=== PATIENT | male | born 1940 | race Caucasian/White ===

== ENCOUNTER 2017-08-05 12:25 | Inpatient (IN) | payer OTHER ==
[~2017-08-05] VITALS: Ht 175.3 cm; Wt 77.1 kg
--- NOTE | 2017-08-05 12:33 | NUR ---
pt is in room #1b. dr Diaz evaluated the pt.
[2017-08-05] MEDS ORDERED: LABETALOL HCL 100 MG/20 ML VIAL ONE ×2 (12:57→14:32)
[2017-08-05] MEDS ORDERED: LABETALOL HCL 100 MG/20 ML VIAL IV ONE ×2 (13:00)
[2017-08-05 13:03] LABS: BASOPHILS # (AUTO) 0.1 K/uL (0.0-8.0); BASOPHILS % (AUTO) 0.9 % (0.0-2.0); EOSINOPHILS # (AUTO) 0.1 K/uL (0.0-0.7); HEMATOCRIT 28.4 % (36.7-47.1); HEMOGLOBIN 9.6 g/dL (12.5-16.3); LYMPHOCYTES # (AUTO) 1.1 K/uL (20.0-40.0); LYMPHOCYTES % (AUTO) 16.2 % (20.5-51.5); MEAN CORPUSCULAR HEMOGLOBIN 31.8 uug (23.8-33.4); MEAN CORPUSCULAR HGB CONC 34 g/dL (32.5-36.3); MEAN CORPUSCULAR VOLUME 94.1 fL (73.0-96.2); MONOCYTES # (AUTO) 0.8 K/uL (2.0-10.0); MONOCYTES % (AUTO) 11.5 % (0.0-11.0); NEUTROPHILS # (AUTO) 4.9 K/uL (1.8-8.9); NEUTROPHILS % (AUTO) 70.4 % (38.5-71.5); PLATELET COUNT (AUTO) 178 K/uL (152-348); RED BLOOD CELL COUNT(AUTO) 3.01 MIL/uL (4.06-5.63)
[2017-08-05 13:11] LABS: CARBON DIOXIDE 29 mmol/L (21-32); CHLORIDE 106 mmol/L (98-107); CREATININE 1.9 mg/dL (0.6-1.3); GLUCOSE 127 mg/dL (74-106); UREA NITROGEN, BLOOD 33 mg/dL (7-18)
[2017-08-05 13:23] LABS: ALANINE AMINOTRANSFERASE 17 U/L (16-63); ALKALINE PHOSPHATASE 61 U/L (50-136); ASPARTATE AMINOTRANSFERASE 11 U/L (15-37); BILIRUBIN,DIRECT 0.1 mg/dL (0.0-0.2); BILIRUBIN,TOTAL 0.3 mg/dL (0.2-1.0); TOTAL PROTEIN, SERUM 7.1 g/dL (6.4-8.2)
[2017-08-05] MEDS ORDERED: hydrALAZINE HCL 20 MG/1 ML VIAL IV ONE ×2 (13:45→14:30)
[2017-08-05] MEDS ORDERED: hydrALAZINE HCL 20 MG/1 ML VIAL ONE ×2 (13:50→14:33)
[2017-08-05] MEDS ORDERED: ACET-2154 PO (14:07)
[2017-08-05] MEDS ORDERED: DIVA125T2 PO (14:07)
[2017-08-05] MEDS ORDERED: ASPI81TA31 PO (14:07)
[2017-08-05] MEDS ORDERED: LATA2.5D7 EACHEYE (14:07)
[2017-08-05] MEDS ORDERED: MULT1TAB73 PO (14:07)
[2017-08-05] MEDS ORDERED: FERR325T28 PO (14:07)
[2017-08-05] MEDS ORDERED: NIFE60TA69 PO (14:07)
[2017-08-05] MEDS ORDERED: MELA5TAB PO (14:07)
[2017-08-05] MEDS ORDERED: SENN-71 PO (14:07)
[2017-08-05] MEDS ORDERED: ATOR10TA PO (14:07)
[2017-08-05] MEDS ORDERED: FAMO40TA71 PO (14:07)
[2017-08-05] MEDS ORDERED: ISOS30TA6 PO (14:07)
[2017-08-05] MEDS ORDERED: METF500T6 PO (14:07)
[2017-08-05] MEDS ORDERED: HC A30CR2 RC (14:07)
[2017-08-05] MEDS ORDERED: SITA100T PO (14:07)
[2017-08-05] MEDS ORDERED: CALC300T PO (14:07)
[2017-08-05] MEDS ORDERED: FINA5TAB3 PO (14:07)
[2017-08-05] MEDS ORDERED: DIVA250T4 PO (14:07)
[2017-08-05] MEDS ORDERED: CHOL100045 PO (14:07)
[2017-08-05] MEDS ORDERED: NADO20TA12 PO (14:07)
[2017-08-05] MEDS ORDERED: ASPIRIN 81 MG TAB.CHEW PO ONE (14:15)
[2017-08-05] MEDS ORDERED: ASPIRIN 81 MG TAB.CHEW ONE (14:31)
[2017-08-05] MEDS ORDERED: DIVALPROEX 125 MG TABLET.DR PO PRN (14:45)
[2017-08-05] MEDS ORDERED: DEXTROSE 50% 50 ML DISP.SYRIN IV PRN (14:45)
[2017-08-05] MEDS ORDERED: MORPHINE SULFATE 2 MG/1 ML DISP.SYRIN IV PRN (14:45)
[2017-08-05] MEDS ORDERED: ONDANSETRON 4 MG/2 ML VIAL IV PRN (14:45)
[2017-08-05] MEDS: ASPIRIN EC 81 MG TABLET.DR PO SCH (14:45)
[2017-08-05] MEDS ORDERED: SENNOSIDES/DOCUSATE SODIUM TABLET PO PRN (14:45)
[2017-08-05] MEDS ORDERED: NITROGLYCERIN 0.4 MG/TAB BOTTLE SL PRN (14:45)
[2017-08-05] MEDS ORDERED: hydrALAZINE HCL 25 MG TABLET PO PRN (14:45)
--- NOTE | 2017-08-05 14:49 | NUR ---
report was given to rn mode. pt was trnsfered to mode room #206.
[2017-08-05] MEDS ORDERED: hydrALAZINE HCL 20 MG/1 ML VIAL IV PRN (15:15)
--- NOTE | 2017-08-05 15:15 | NUR ---
ADMITTED FROM [facility] A 77 YO MALE WITH ADM DX OF CP, HYPERTENSION OUT OF CONTROL, ANEMIA, ALERT AND VERBALLY RESPONSIVE, VERY CONFUSED AND UNCOOPERATIVE. REORIENTATION TO UNIT INITIATED. PLACED COMFORTABLY AND SAFELY IN BED REFUSED TO USE HOSPITAL GOWN AND HEART MONITOR. EXPLAINED THE PROTOCOL AND IMPORTANCE F BEING ON HEART MONITOR AND BECAME COMPLIANCE AFTER TALKING TO SON. ADMISSION ASSESSMENT INITIATED. SR ON MONITOR. OBSERVED
[2017-08-05 15:46] VITALS: BP 175/74
[2017-08-05 17:01] LABS: *BILIRUBIN,URIN NEGATIVE (NEGATIVE); *BLOOD, URINE NEGATIVE (NEGATIVE); *CLARITY,URINE CLEAR (CLEAR); *COLOR,URINE YELLOW (YELLOW); *KETONES,URINE NEGATIVE (NEGATIVE); *PROTEIN,URINE 2+ (NEGATIVE); *UROBILINOGEN,URINE 0.2 E.U./dl (NORMAL); LEUKOCYTE ESTERASE ,URINE NEGATIVE (NEGATIVE); NITRITE, URINE NEGATIVE (NEGATIVE); UGLUCOSE NEGATIVE (NEGATIVE)
[2017-08-05] MEDS: DIVALPROEX 250 MG TABLET.DR PO SCH (17:04)
[2017-08-05 17:09] LABS: BACTERIA,URINE FEW /HPF (NONE SEEN); RBC,URINE 0-3 /HPF (0-3); SQUAMOUS EPITHELIAL CELL,UR FEW /HPF (NONE SEEN); WBC,URINE 0-3 /HPF (0-3)
[2017-08-05] MEDS: BLOOD SUGAR DIAGNOSTIC 1 EACH STRIP VI SCH ×2 (17:09→20:53)
--- NOTE | 2017-08-05 18:39 | NUR ---
RESTING IN BED WITH NO SS OF DISTRESS. SR ON MONITOR. ATE DINNER FAIRLY WELL. FAMILY CAME IN VERY SUPPORTIVE WITH CARE
[2017-08-05] MEDS: MORPHINE SULFATE 4 MG/1 ML DISP.SYRIN IV PRN (19:37)
[2017-08-05] MEDS: ATORVASTATIN 10 MG TABLET PO SCH (20:49)
[2017-08-05] MEDS: LATANOPROST OPHT DROP 2.5 ML BOTTLE EACHEYE SCH (20:49)
[2017-08-05] MEDS: NIFEdipine XL 60 MG TABSR PO SCH (20:49)
[2017-08-05 20:50] VITALS: BP 125/71
[2017-08-05] MEDS: INSULIN REGULAR, HUMAN 300 UNIT/3 ML VIAL SQ PRN (20:58)
[2017-08-06 01:09] VITALS: BP 142/62
[2017-08-06 04:00] VITALS: BP 149/64
--- NOTE | 2017-08-06 05:30 | NUR ---
PT ALERT,ORIENTED, FORGETFUL, PT EASILY GET AGITATED, SHORT -TEMPER. PT C/O PAIN IN THE NECK WARM COMPRESS AND MORPHINE GIVEN WITH GOOD RELIEF ,SLEPT WELL UNTIL PT AWAKEN FROM NOISE IN THE MORNING. GETS UPSET AND VERBALLY RUDE.REFUSED LABS THIS MORNING AND WANTED TO SLEEP MORE, WILL RESCHEDULE LATER TODAY, TROPONIN IS NEGATIVE,VSS,AFEBRILE, SINUS RHYTHM ON MONITOR, NO ECTOPY. WILL CONTINUE TO MONITOR, STILL NEEDS STOOL SAMPLE.
[2017-08-06] MEDS: PANTOPRAZOLE SODIUM 40 MG TABLET.DR PO SCH (06:37)
[2017-08-06] MEDS: BLOOD SUGAR DIAGNOSTIC 1 EACH STRIP VI SCH ×6 (07:30→20:50)
--- NOTE | 2017-08-06 07:53 | NUR ---
PATIENT IN ROOM WITH DOOR CLOSE, VERY UNCOOPERATIVE AND VERBALLY ABUSIVE AND LOUD, BANGING DOOR WHEN TRIED TO HELP WITH AM AND ROUTINE CARE. REMOVED HEART MONITOR OTHERWISE REMAINS ON SR.
--- NOTE | 2017-08-06 08:01 | NUR ---
RESTING IN BED WITH NO SS OF HYPO OR HYPERGLYCEMIA. KEEP NPO
[2017-08-06] MEDS: CHOLECALCIFEROL 1,000 UNIT TABLET PO SCH (08:09)
[2017-08-06] MEDS: ASPIRIN EC 81 MG TABLET.DR PO SCH (08:11)
[2017-08-06] MEDS: MULTIVITAMINS,THERAPEUTIC TABLET PO SCH (08:11)
[2017-08-06] MEDS: FERROUS SULFATE 325 MG TABEC PO SCH (08:11)
[2017-08-06] MEDS: FINASTERIDE 5 MG TABLET PO SCH (08:11)
[2017-08-06] MEDS: DIVALPROEX 250 MG TABLET.DR PO SCH ×2 (08:12→16:44)
[2017-08-06] MEDS: ISOSORBIDE MONONITRATE 30 MG TAB.SR.24H PO SCH (08:12)
[2017-08-06] MEDS: NIFEdipine XL 60 MG TABSR PO SCH ×2 (08:13→20:43)
[2017-08-06] MEDS: NADOLOL 40 MG TABLET PO SCH (08:16)
[2017-08-06] MEDS: INSULIN REGULAR, HUMAN 300 UNIT/3 ML VIAL SQ PRN ×4 (08:23→20:52)
--- NOTE | 2017-08-06 08:58 | NUR ---
REMAINS VERY CONFUSED, SEEN BY DR GUAJARDO WITH ORDERS. CHANGED STATUS TO TELE. REMAINS SR ON MONITOR, DENIES CP
[2017-08-06] MEDS ORDERED: Medication Not On Formulary EA (Multivitamins (Multivitamin) 1 EACH) PO SCH (09:00)
[2017-08-06] MEDS ORDERED: NADOLOL 20 MG PO SCH (09:00)
[2017-08-06] MEDS ORDERED: Medication Not On Formulary EA (Sitagliptin Phosphate (Januvia) 100 MG) PO SCH (09:00)
[2017-08-06] MEDS ORDERED: SITAGLIPTIN PHOSPHATE 50 MG TABLET PO SCH (09:00)
[2017-08-06 09:10] LABS: ALANINE AMINOTRANSFERASE 17 U/L (16-63); ALKALINE PHOSPHATASE 55 U/L (50-136); ASPARTATE AMINOTRANSFERASE 16 U/L (15-37); BILIRUBIN,TOTAL 0.5 mg/dL (0.2-1.0); CARBON DIOXIDE 29 mmol/L (21-32); CHLORIDE 103 mmol/L (98-107); CHOLESTEROL 154 mg/dL (<200); CREATININE 1.8 mg/dL (0.6-1.3); GLUCOSE 176 mg/dL (74-106); HDL CHOLESTEROL 48 mg/dL (40-60); MAGNESIUM 1.7 mg/dL (1.8-2.4); PHOSPHOROUS 3.9 mg/dL (2.5-4.9); POTASSIUM 4.1 mmol/L (3.5-5.1); TOTAL PROTEIN, SERUM 7.1 g/dL (6.4-8.2); TRIGLYCERIDES 95 MG/DL (30-150); UREA NITROGEN, BLOOD 29 mg/dL (7-18)
[2017-08-06 09:13] LABS: IRON, SERUM 67 ug/dL (50-175)
[2017-08-06 09:19] LABS: BASOPHILS % (AUTO) 0.5 % (0.0-2.0); EOSINOPHILS # (AUTO) 0.1 K/uL (0.0-0.7); EOSINOPHILS % (AUTO) 1.6 % (0.0-7.0); HEMATOCRIT 29.9 % (36.7-47.1); MEAN CORPUSCULAR HEMOGLOBIN 31.4 uug (23.8-33.4); MEAN CORPUSCULAR HGB CONC 34 g/dL (32.5-36.3); MONOCYTES # (AUTO) 0.9 K/uL (2.0-10.0); NEUTROPHILS # (AUTO) 4.9 K/uL (1.8-8.9); NEUTROPHILS % (AUTO) 70.9 % (38.5-71.5); PLATELET COUNT (AUTO) 183 K/uL (152-348); RED BLOOD CELL COUNT(AUTO) 3.19 MIL/uL (4.06-5.63); WHITE BLOOD COUNT (AUTO) 6.9 K/uL (3.6-10.2)
--- NOTE | 2017-08-06 09:30 | NUR ---
SEEN BY DR WILLS AWARE OF HYPERNATREMIA, SAID CONTINUE CURRENT IVF FOR PANCREATITIS
[2017-08-06 09:34] LABS: THYROID STIMULATING HORMONE 3.223 mIU/mL (0.358-3.740)
[2017-08-06] MEDS ORDERED: MAGNESIUM SULFATE/D5W 100 ML IV SCH (10:45)
[2017-08-06] MEDS ORDERED: MAGNESIUM OXIDE 400 MG TABLET PO ONE (11:00)
[2017-08-06] MEDS: MORPHINE SULFATE 4 MG/1 ML DISP.SYRIN IV PRN (11:31)
[2017-08-06 11:32] VITALS: BP 136/63
[2017-08-06] MEDS: LINAGLIPTIN 5 MG TABLET PO SCH (11:33)
[2017-08-06] MEDS: hydrALAZINE HCL 50 MG TABLET PO SCH ×2 (11:34→20:42)
--- NOTE | 2017-08-06 11:52 | NUR ---
SEEN BY HOSPITALIST WITH ORDERS, PSYCH CONSULT FOR DR JERRY ON MESSAGE LEFT WITH SERVICE
[2017-08-06 15:32] VITALS: BP 135/55
[2017-08-06] MEDS ORDERED: ZIPRASIDONE MESYLATE 20 MG VIAL IM PRN (16:30)
--- NOTE | 2017-08-06 16:32 | NUR ---
PATIENT CONTINUE TO WONDER AROUND VERY AGITATED AND COMBATIVE VERBALLY, WANTS TO GET OUT. DR MCKEON NOTIFIED WITH ORDERS
--- NOTE | 2017-08-06 17:58 | NUR ---
WIDELY AWAKE AND STAYING IN ROOM MOST OF THE TIME AND WANTS DOOR CLOSE. 1:1 SITTER TO START STRIPPER SOFT PLASTIC
--- NOTE | 2017-08-06 19:10 | NUR ---
Received patient awake, ambulating out the room followed by the sitter assigned. Patient so confused what's going with him, why he is in the hospital. Reorientation done. Close visual and physical supervision will provide to avoid wondering. Continue care as planned.
[2017-08-06 20:00] VITALS: BP 131/61
[2017-08-06] MEDS: LATANOPROST OPHT DROP 2.5 ML BOTTLE EACHEYE SCH (20:41)
[2017-08-06] MEDS: ATORVASTATIN 10 MG TABLET PO SCH (20:41)
[2017-08-06] MEDS: QUETIAPINE FUMARATE 25 MG TABLET PO PRN (20:43)
[2017-08-07 05:46] VITALS: BP 139/63
[2017-08-07] MEDS: ACETAMINOPHEN 325 MG TABLET PO PRN ×2 (06:08→14:36)
[2017-08-07] MEDS: QUETIAPINE FUMARATE 25 MG TABLET PO PRN (06:08)
[2017-08-07] MEDS: PANTOPRAZOLE SODIUM 40 MG TABLET.DR PO SCH (06:08)
[2017-08-07] MEDS: BLOOD SUGAR DIAGNOSTIC 1 EACH STRIP VI SCH ×2 (06:15→11:54)
--- NOTE | 2017-08-07 06:31 | NUR ---
Slept well. Sitter remain at bedside. No agitation presented all night. no significant event reported . Continue current plan of care.
--- NOTE | 2017-08-07 07:50 | NUR ---
Received client in bed sleeping in a supine, semi fowlers position, easily arousable to name. No apparent s/s of pain, distress, discomfort, or SOB. Sitter 1:1. Bed at lowest position for safety and call light within reach for assistance.
[2017-08-07] MEDS: INSULIN REGULAR, HUMAN 300 UNIT/3 ML VIAL SQ PRN ×2 (08:17→12:23)
[2017-08-07] MEDS: LINAGLIPTIN 5 MG TABLET PO SCH (08:26)
[2017-08-07] MEDS: FINASTERIDE 5 MG TABLET PO SCH (08:26)
[2017-08-07] MEDS: hydrALAZINE HCL 50 MG TABLET PO SCH (08:30)
[2017-08-07] MEDS: FERROUS SULFATE 325 MG TABEC PO SCH (08:30)
[2017-08-07] MEDS: NADOLOL 40 MG TABLET PO SCH (08:30)
[2017-08-07] MEDS: ASPIRIN EC 81 MG TABLET.DR PO SCH (08:30)
[2017-08-07 08:31] VITALS: BP 136/59
[2017-08-07] MEDS: ISOSORBIDE MONONITRATE 30 MG TAB.SR.24H PO SCH (08:31)
[2017-08-07] MEDS: DIVALPROEX 250 MG TABLET.DR PO SCH (08:31)
[2017-08-07] MEDS: CHOLECALCIFEROL 1,000 UNIT TABLET PO SCH (08:31)
[2017-08-07] MEDS: NIFEdipine XL 60 MG TABSR PO SCH (08:31)
[2017-08-07] MEDS: MULTIVITAMINS,THERAPEUTIC TABLET PO SCH (08:31)
[2017-08-07 09:15] LABS: BASOPHILS # (AUTO) 0.1 K/uL (0.0-8.0); BASOPHILS % (AUTO) 0.6 % (0.0-2.0); EOSINOPHILS # (AUTO) 0.1 K/uL (0.0-0.7); EOSINOPHILS % (AUTO) 1.5 % (0.0-7.0); HEMATOCRIT 29.4 % (36.7-47.1); HEMOGLOBIN 10.2 g/dL (12.5-16.3); LYMPHOCYTES # (AUTO) 1.6 K/uL (20.0-40.0); MEAN CORPUSCULAR HEMOGLOBIN 32.6 uug (23.8-33.4); MEAN CORPUSCULAR HGB CONC 35 g/dL (32.5-36.3); MEAN CORPUSCULAR VOLUME 94.2 fL (73.0-96.2); MONOCYTES # (AUTO) 1.1 K/uL (2.0-10.0); MONOCYTES % (AUTO) 13.2 % (0.0-11.0); NEUTROPHILS # (AUTO) 5.4 K/uL (1.8-8.9); NEUTROPHILS % (AUTO) 65.7 % (38.5-71.5); PLATELET COUNT (AUTO) 186 K/uL (152-348); RED BLOOD CELL COUNT(AUTO) 3.12 MIL/uL (4.06-5.63); WHITE BLOOD COUNT (AUTO) 8.3 K/uL (3.6-10.2)
[2017-08-07 09:27] LABS: ALANINE AMINOTRANSFERASE 24 U/L (16-63); ALKALINE PHOSPHATASE 53 U/L (50-136); ASPARTATE AMINOTRANSFERASE 13 U/L (15-37); BILIRUBIN,TOTAL 0.6 mg/dL (0.2-1.0); CARBON DIOXIDE 29 mmol/L (21-32); CHLORIDE 101 mmol/L (98-107); CREATINE KINASE, TOTAL 31 U/L (39-308); GLUCOSE 193 mg/dL (74-106); MAGNESIUM 2.1 mg/dL (1.8-2.4); PHOSPHOROUS 3.7 mg/dL (2.5-4.9); POTASSIUM 4.3 mmol/L (3.5-5.1); TOTAL PROTEIN, SERUM 7.2 g/dL (6.4-8.2); UREA NITROGEN, BLOOD 37 mg/dL (7-18)
--- NOTE | 2017-08-07 11:50 | NUR ---
Informed client of discharge today and he was okay with orders.
[2017-08-07 13:12] LABS: *BILIRUBIN,URIN NEGATIVE (NEGATIVE); *BLOOD, URINE NEGATIVE (NEGATIVE); *CLARITY,URINE CLEAR (CLEAR); *COLOR,URINE YELLOW (YELLOW); *KETONES,URINE NEGATIVE (NEGATIVE); *PROTEIN,URINE 2+ (NEGATIVE); *UROBILINOGEN,URINE 0.2 E.U./dl (NORMAL); LEUKOCYTE ESTERASE ,URINE NEGATIVE (NEGATIVE); NITRITE, URINE NEGATIVE (NEGATIVE); PH,URINE 5.5 (5.0-8.0); UGLUCOSE NEGATIVE (NEGATIVE)
[2017-08-07 13:19] LABS: *CREATININE,URINE 91.5 mg/dL (30-125); *URINE TOTAL PROTEIN RANDOM 91.1 mg/dL (<150/24HR)
[2017-08-07 13:23] LABS: BACTERIA,URINE FEW /HPF (NONE SEEN); RBC,URINE 0-3 /HPF (0-3); SQUAMOUS EPITHELIAL CELL,UR FEW /HPF (NONE SEEN)
--- NOTE | 2017-08-07 14:35 | NUR ---
Pt sitting up in chair. Complained of 7/10 gen pain. Per pt, 3/10 is an acceptable pain level for him.Offered Tylenol 650mg via PO. Pt agreed. Will monitor for effectiveness.
--- NOTE | 2017-08-07 15:15 | NUR ---
Per pt, Tylenol effective. Pt gen pain level down to 1/10. Pt sitting up in chair, no acute distress noted. 1:1 sitter at bedside.
[2017-08-07] MEDS ORDERED: MULT-24 PO (16:05)
[2017-08-07] MEDS ORDERED: HYDR50TA68 PO (16:05)
--- NOTE | 2017-08-07 16:55 | NUR ---
Client has been discharged with orders from MD and an okay to discharge from psychiatrist. IV line and ID band removed. No apparent s/s of SOB, pain, distress or discomfort. Discharge instruction where given and new prescriptions medications explained to him. All personally belonging account for. Client was guided down to lobby where he was picked up by a driver license technician from [facility].
[2017-08-08 09:08] LABS: A/G RATIO 1.4 (0.7-1.7); ALBUMIN 3.8 g/dL (2.9-4.4); ALPHA-1-GLOBULIN 0.2 g/dL (0.0-0.4); ALPHA-2-GLOBULIN 0.8 g/dL (0.4-1.0); BETA GLOBULIN 0.7 g/dL (0.7-1.3); GLOBULIN, TOTAL 2.7 g/dL (2.2-3.9); M-SPIKE Not Observed g/dL (Not Observed)
== END 2017-08-07 16:55 | DRG 205 ==
LOC: ER 12:26 → DOU 15:00 → TELE-TD 15:09 → TELE 08-06 07:12
PROVIDERS: ADMIT Internal Medicine; ATTEND Nurse Practitioner Acute Care
DX: M94.0 Chondrocostal junction syndrome [Tietze] (principal); G93.40 Encephalopathy, unspecified; N17.0 Acute kidney failure with tubular necrosis; E11.22 Type 2 diabetes mellitus with diabetic chronic kidney disease; E11.65 Type 2 diabetes mellitus with hyperglycemia; D68.59 Other primary thrombophilia; N18.3 Chronic kidney disease, stage 3 (moderate); I50.32 Chronic diastolic (congestive) heart failure; M48.56XA Collapsed vertebra, not elsewhere classified, lumbar region, initial encounter for fracture; I13.0 Hypertensive heart and chronic kidney disease with heart failure and stage 1 through stage 4 chronic kidney disease, or unspecified chronic kidney disease; I16.0 Hypertensive urgency; E83.42 Hypomagnesemia; F03.90 Unspecified dementia, unspecified severity, without behavioral disturbance, psychotic disturbance, mood disturbance, and anxiety; E78.5 Hyperlipidemia, unspecified; Z79.899 Other long term (current) drug therapy; F32.9 Major depressive disorder, single episode, unspecified; M51.36 Other intervertebral disc degeneration, lumbar region; D53.9 Nutritional anemia, unspecified; Z87.891 Personal history of nicotine dependence; Z79.84 Long term (current) use of oral hypoglycemic drugs; Z79.82 Long term (current) use of aspirin; N40.0 Benign prostatic hyperplasia without lower urinary tract symptoms; N28.1 Cyst of kidney, acquired; I25.10 Atherosclerotic heart disease of native coronary artery without angina pectoris
CPT/HCPCS: 36415; 70030-TC; 71045; 71250; 76770; 83550; 83735; 83970; 84100; 84153; 84155; 84156; 84165; 84300; 84443; 85025; 85730; 86850; 86900; 86901; 87086; 93005; 93307; A4663; J0360; J1815; J2270; J3486; J3490; J7030